=== PATIENT | female | born 1950 | race Two or more races ===

== ENCOUNTER 2018-05-26 17:31 | Emergency (ER) | payer MEDICAID ==
[~2018-05-26] VITALS: Ht 152.4 cm; Wt 89.8 kg
[2018-05-26 18:26] LABS: Basophils # (auto) 0 uL; Basophils % (auto) 0.4 % (0.0-2.0); Eosinophils # (auto) 0.3 uL; Eosinophils % (auto) 2.8 % (0.0-7.0); Hematocrit 36.4 % (36.0-46.0); Hemoglobin 12.2 g/dL (12.2-16.2); Lymphocytes # (auto) 3.4 uL; Lymphocytes % (auto) 36.3 % (10.0-50.0); Mean Corpuscular Hemoglobin 30.4 pg (28.0-32.0); Mean Corpuscular Hgb Conc. 33.6 g/dL (32.0-36.0); Mean Corpuscular Volume 90.6 fL (80.0-100.0); Monocytes # (auto) 0.8 uL; Neutrophils % (auto) 52.5 % (37.0-80.0); Nucleated Red Blood Cells % 0.1 %; Platelet Count (auto) 238 10^3/uL (140-450); Red Blood Cells 4.02 10^6/uL (4.0-5.20); Red Cell Distribution Width 13.8 % (11.8-14.3); White Blood Cell 9.5 10^3/uL (4.4-10.8)
[2018-05-26 18:38] LABS: Albumin 3.5 g/dL (3.4-5.0); Anion Gap 7 (5-15); Blood Urea Nitrogen 15 mg/dL (7-18); Carbon Dioxide 24 mmol/L (21-32); Chloride 110 mmol/L (98-107); Glucose 111 mg/dL (74-106); Potassium 4.3 mmol/L (3.5-5.1); Sodium 141 mmol/L (136-145)
[2018-05-26 18:42] LABS: GFR African American 66 mL/min; GFR Non-African American 55 mL/min
[2018-05-26 18:47] LABS: Alanine Aminotransferase 22 U/L (13-56); Alkaline Phosphatase 141 U/L (45-117); Aspartate Aminotransferase 12 U/L (15-37); Bilirubin, Total 0.3 mg/dL (0.2-1.0); Total Protein 7.7 g/dL (6.4-8.2)
[2018-05-26] MEDS ORDERED: HYDROcodone-ACET 10/325MG TAB PO ONE (21:45)
[2018-05-26 21:46] LABS: INR 0.98 (0.9-1.15); Prothrombin Time 10.5 sec (9.27-12.13)
[2018-05-26 21:47] LABS: Partial Thromboplastin Time 27.5 sec (23.78-33.04)
[2018-05-27 01:06] VITALS: BP 161/70
== END 2018-05-27 03:30 | disposition home or self-care (01) ==
LOC: ER 17:31
DX: S82.51XA Displaced fracture of medial malleolus of right tibia, initial encounter for closed fracture (principal); I10 Essential (primary) hypertension; R60.9 Edema, unspecified; E03.9 Hypothyroidism, unspecified; X58.XXXA Exposure to other specified factors, initial encounter; Y93.89 Activity, other specified; Y99.8 Other external cause status; Y92.89 Other specified places as the place of occurrence of the external cause
CPT/HCPCS: 29515; 36415; 71045; 73700; 80053; 83735; 83880; 84443; 84484; 85025; 85379; 85610; 85730; 93005; 93971; 94761